=== PATIENT | female | born 1945 | race Caucasian/White ===

== ENCOUNTER 2022-01-19 10:09 | Outpatient (CLI) | payer MEDICARE, OTHER ==
[2022-01-17 12:37] VITALS: BMI 31.1
[2022-01-19] MEDS ORDERED: Dexmedetomidine 200 MCG/2 ML VIAL ONE (10:28)
[2022-01-19] MEDS ORDERED: fentaNYL PF 100 MCG/2 ML SYRINGE ONE (10:28)
[2022-01-19] MEDS ORDERED: FENTANYL 50 MCG/ML 1 ML VIAL ONE ×2 (10:46→11:31)
[2022-01-19] MEDS ORDERED: PHENYLEPHRINE-NS 100 MCG/ML 10 ML SYRINGE ONE (12:00)
== END 2022-01-19 13:41 | disposition home or self-care (01) ==
LOC: MRI 10:09
PROVIDERS: ATTEND Specialist
DX: S76.302D Unspecified injury of muscle, fascia and tendon of the posterior muscle group at thigh level, left thigh, subsequent encounter (principal); S76.309D Unspecified injury of muscle, fascia and tendon of the posterior muscle group at thigh level, unspecified thigh, subsequent encounter; M25.552 Pain in left hip; S76.012A Strain of muscle, fascia and tendon of left hip, initial encounter; S76.312A Strain of muscle, fascia and tendon of the posterior muscle group at thigh level, left thigh, initial encounter; R60.0 Localized edema; M25.462 Effusion, left knee; M67.952 Unspecified disorder of synovium and tendon, left thigh; M70.62 Trochanteric bursitis, left hip
CPT/HCPCS: 73718; 73721; J3010